=== PATIENT | male | born 1970 | race Caucasian/White ===

== ENCOUNTER 2017-05-30 12:01 | Emergency (ER) | payer BC ==
[~2017-05-30] VITALS: Ht 160 cm; Wt 95.5 kg
[2017-05-30 12:20] VITALS: BP 157/85
[2017-05-30] MEDS ORDERED: NORCO 5/3251 TABLET PO (14:48)
== END 2017-05-30 15:28 | disposition home or self-care (01) ==
LOC: EME 12:01
DX: S86.212A Strain of muscle(s) and tendon(s) of anterior muscle group at lower leg level, left leg, initial encounter (principal); W00.0XXA Fall on same level due to ice and snow, initial encounter; Z88.0 Allergy status to penicillin
CPT/HCPCS: 73564; 99281; 99283

== ENCOUNTER → 2017-06-11 | Outpatient (CLI) | payer BC ==
[~2017-06-11] MED LIST: NORCO 5/3251 TABLET PO
== END | disposition home or self-care (01) ==
LOC: CDC 12:36
DX: Z01.810 Encounter for preprocedural cardiovascular examination (principal); M25.562 Pain in left knee; S76.112D Strain of left quadriceps muscle, fascia and tendon, subsequent encounter; S83.412D Sprain of medial collateral ligament of left knee, subsequent encounter
CPT/HCPCS: 93000